=== PATIENT | male | born 1960 | race Caucasian/White ===

== ENCOUNTER 2020-12-22 11:27 | Outpatient (CLI) | payer OTHER, SELFPAY ==
[2020-12-22 11:54] VITALS: BP 126/75; PULSE 88; RESP 18; TEMP 37.5; O2SAT 94; BMI 33.9
[2020-12-22] MEDS: 0.9% Saline Lock 10 ML Syringe IV (12:12)
[2020-12-22 12:36] VITALS: BP 123/68; PULSE 72; RESP 16; TEMP 37.7; O2SAT 94
[2020-12-22 13:35] VITALS: BP 130/69; PULSE 79; RESP 16; TEMP 37.2; O2SAT 93
== END 2020-12-22 13:37 | disposition home or self-care (01) ==
LOC: MS3OUT 11:28 → MS3 11:28
PROVIDERS: PCP Internal Medicine; Referring Provider Nurse Practitioner Adult Health; Visit Provider Nurse Practitioner Adult Health
DX: Z23 Encounter for immunization (principal); U07.1 COVID-19
CPT/HCPCS: J7050; M0243; A4216; Q0244